=== PATIENT | male | born 1965 | race Caucasian/White ===

== ENCOUNTER 2017-06-17 16:40 | Emergency (ER) | payer BC, OTHER ==
[~2017-06-17] VITALS: Ht 188 cm; Wt 109.3 kg
[~2017-06-17 16:40] MED LIST: ADULT LOW DOSE81 MG PO; LISINOPRIL10 MG PO; NORCO 5-325 TA1 EACH PO; ZOCOR20 MG PO
--- NOTE | 2017-06-18 00:02 | EKG ---
[facility] [address] [place] [address] Signed Normal sinus rhythm Possible Inferior infarct , age undetermined Abnormal ECG Confirmed by JUNIOR PLATA MD ([id number]) on 06/18/2017 12:01:58 AM Electronically Signed By: JUNIOR PLATA MD 06/18/17 0002 PATIENT NAME: MOISES FRANCE Electrocardiogram DATE OF : 63 PHYSICIAN: JUNIOR PLATA MD REPORT #: [id number] REPORT IS CONFIDENTIAL AND NOT TO BE RELEASED WITHOUT AUTHORIZATION
== END 2017-06-17 20:55 | disposition short-term general hospital (02) ==
LOC: ED 16:40
DX: I20.0 Unstable angina (principal); I10 Essential (primary) hypertension; Z79.82 Long term (current) use of aspirin; Z79.899 Other long term (current) drug therapy
CPT/HCPCS: 71046; 80053; 84484; 85025; 85610; 93005; 93010; 96374; 96376; 99285; J3010

== ENCOUNTER 2017-07-31 12:32 | Day surgery (SDC) | payer BC, OTHER ==
[~2017-07-31] VITALS: Ht 188 cm; Wt 109.3 kg
--- NOTE | 2017-07-31 13:12 | NUR ---
PATIENT CHECKED IN TO ROOM 107.
--- NOTE | 2017-07-31 14:53 | NUR ---
07/31/17 1453 Sonya Goel 1436 PT ARRIVED TO PACU DROWSY. RESP EVEN AND UNLABORED. 1447 MD AT BEDSIDE. 1451 O2 REMOVED, SITTING IN HIGH FOWLERS. 1453 PT SIPPING WATER.
--- NOTE | 2017-08-02 10:07 | OR ---
[facility] [address], [place] [address] Signed DATE OF OPERATION: 07/31/2017 SURGEON: Moises Anderson MD PREOPERATIVE DIAGNOSIS: Globus sensation, clinical reflux. POSTOPERATIVE DIAGNOSIS: Hiatal hernia without esophagitis or stricture. PROCEDURE: Esophagogastroduodenoscopy with biopsies. ANESTHESIA: Intravenous sedation, fentanyl 100 mcg, Versed 5 mg. 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 He has had a sensation of something "stuck in the upper part of the chest." He has had troublesome symptoms and probable esophagitis related to globus. He has gone through fairly extensive evaluation including a 12-lead EKG, emergency room evaluation with cardiac enzymes, extensive evaluation including echocardiogram and stress test at [facility] and ultimately empiric treatment with PPI medication (Prilosec). He quit chewing tobacco in February of 2017. He had previously been showing for quite a long time. He was admitted at this time to undergo upper endoscopy to assess for anatomic causes of his globus sensation. He understands the risks of bleeding, infection, and perforation related to upper endoscopy and wishes to proceed. FINDINGS: There is no lesion to account for globus sensation. The mucosa of the esophagus was entirely normal from the distal to the most proximal portion. There was no evidence of felinization of the esophagus to suggest eosinophilic esophagitis. He clearly had a very poor flap valve hiatal hernia, but strangely no esophagitis proper. Stomach and duodenum were essentially normal. CHAPARRITA test was negative. DESCRIPTION OF PROCEDURE: The patient was brought to the endoscopy suite and placed in lateral decubitus position after undergoing topical Hurricaine spray hypopharyngeal anesthesia. A bite block was placed. An Olympus video upper endoscope was passed in the hypopharynx, vocal cords were visualized, and surrounding soft tissue noted to be normal. The scope was advanced Electronically Signed By: MOISES ANDRESON MD 08/02/17 1007 PATIENT NAME: MOISES FRANCE OPERATIVE REPORT DATE OF : 63 REPORT #: [id number] PHYSICIAN: MOISES ANDERSON MD PCP: JACEY CHANG MD REPORT IS CONFIDENTIAL AND NOT TO BE RELEASED WITHOUT AUTHORIZATION [facility] [address], [place] [address] Signed to the esophagus without problem. Scope was passed down the esophagus with all due care, identifying well, completely normal mucosa throughout. The scope was passed to the stomach, which was insufflated with air with no evidence of bile or other abnormality of the stomach itself. Rugal folds appeared normal. The antrum appeared normal. Pylorus was normal. Scope was passed through the pylorus into the duodenum, which was normal. Biopsies were taken of the second and third portions as well as the bulbar portions of the duodenum. Scope was carefully withdrawn through the pyloric channel. The scope was then manipulated to the antrum allowing for biopsy for both CHAPARRITA and pathologic testing. Retroflexed view was undertaken showing the very poor flap valve, very floppy and easily able to retrograde and retroflex mode passed into the esophagus once again. Scope was straightened and withdrawn to the distal esophagus and although a very poor flap valve/hiatal hernia was noted, the esophageal mucosa itself was normal. Biopsies were obtained nevertheless. The scope was carefully withdrawn to the mid and upper portions and biopsies taken there to assess for eosinophilic esophagitis. The scope was withdrawn, removed, and the patient was taken to recovery room in good condition. CONCLUDING DIAGNOSIS: Clinical reflux symptoms with possibly esophageal spasm from time to time. No evidence of stricture. No evidence of esophagitis proper. PLAN: Reassurance is offered at this time. I would have him continue with his PPI medication. We will review the pathology of his biopsies at our next visit. He will return to see me in approximately 4 to 6 weeks. In the meantime, he should continue with his Prilosec. MD BRO Malagon/JAYSONL /[id number] cc: Jacey Chang MD Copies: JACEY CHANG MD Electronically Signed By: MOISES ANDERSON MD 08/02/17 1007 PATIENT NAME: MOISES FRANCE OPERATIVE REPORT DATE OF : 63 REPORT #: [id number] PHYSICIAN: MOISES ANDERSON MD PCP: JACEY CHANG MD REPORT IS CONFIDENTIAL AND NOT TO BE RELEASED WITHOUT AUTHORIZATION [address] [address] Signed ~ Electronically Signed By: MOISES ANDERSON MD 08/02/17 1007 PATIENT NAME: MOISES FRANCE OPERATIVE REPORT DATE OF : 63 REPORT #: [id number] PHYSICIAN: MOISES ANDERSON MD PCP: JACEY CHANG MD REPORT IS CONFIDENTIAL AND NOT TO BE RELEASED WITHOUT AUTHORIZATION
== END 2017-07-31 15:14 | disposition home or self-care (01) ==
LOC: OPS 12:32 → DS 12:32 → OPS 14:00
PROVIDERS: Surgery
PROC: 0DB78ZX Excision of Stomach, Pylorus, Via Natural or Artificial Opening Endoscopic, Diagnostic (ICD-10-PCS; 2017-07-31)
PROC: 0DB28ZX Excision of Middle Esophagus, Via Natural or Artificial Opening Endoscopic, Diagnostic (ICD-10-PCS; 2017-07-31)
PROC: 0DB38ZX Excision of Lower Esophagus, Via Natural or Artificial Opening Endoscopic, Diagnostic (ICD-10-PCS; 2017-07-31)
PROC: 0DB98ZX Excision of Duodenum, Via Natural or Artificial Opening Endoscopic, Diagnostic (ICD-10-PCS; principal; 2017-07-31 14:00)
DX: K29.50 Unspecified chronic gastritis without bleeding (principal); K44.9 Diaphragmatic hernia without obstruction or gangrene; I10 Essential (primary) hypertension; K21.9 Gastro-esophageal reflux disease without esophagitis; E66.3 Overweight; F45.8 Other somatoform disorders; Z68.30 Body mass index [BMI] 30.0-30.9, adult
CPT/HCPCS: G0500; J2250; J3010

== ENCOUNTER 2021-01-04 14:39 | Emergency (ER) | payer OTHER, BC ==
[~2021-01-04] VITALS: Ht 188 cm; Wt 104.3 kg
[2021-01-04] MEDS ORDERED: METFORMIN HCL500 M1 PO (14:51)
== END 2021-01-04 16:04 | disposition home or self-care (01) ==
LOC: ED 14:39
DX: Z77.21 Contact with and (suspected) exposure to potentially hazardous body fluids (principal); E11.9 Type 2 diabetes mellitus without complications; Z79.899 Other long term (current) drug therapy; Z79.82 Long term (current) use of aspirin; Z79.84 Long term (current) use of oral hypoglycemic drugs
CPT/HCPCS: 84460; 99283